=== PATIENT | female | born 1965 | race Caucasian/White ===

== ENCOUNTER → 2018-08-17 | Outpatient (CLI) | payer BC | LOC: M WHC 14:37 | DX: Z12.31 Encounter for screening mammogram for malignant neoplasm of breast (principal) | CPT/HCPCS: 77067 ==

== ENCOUNTER → 2019-11-13 | Outpatient (CLI) | payer BC ==
[~2019-11-13] MED LIST: BUPR100T6 PO; LASI80TA PO; PHEN37.5 PO; PRIS100T PO
== END ==
LOC: M PLALAB 15:37
PROVIDERS: ATTEND Nurse Practitioner Women's Health
DX: Z13.79 Encounter for other screening for genetic and chromosomal anomalies (principal)

== ENCOUNTER → 2019-11-13 | Outpatient (CLI) | payer BC ==
--- NOTE | 2019-11-13 16:49 | REPMRS ---
Patient History The patient states she had a clinical breast exam in 2019. Family history of pancreatic cancer at age 75 in mother. Digital Woman Screen Mammo: November 13, 2019 - Exam #: [id number] Bilateral CC and MLO view(s) were taken. Technologist: Ayla Marte, Technologist Prior study comparison: August 17, 2018, bilateral digital woman screen mammo performed at [facility]. August 31, 2016, digital woman screen mammo performed at [facility]. December 10, 2014, digital woman screen mammo performed at [facility]. FINDINGS: The breast tissue is almost entirely fat. There has been no change in the appearance of the mammogram from the prior studies. There is no interval development of dominant mass, architectural distortion, or grouped microcalcification typical of malignancy. 3-D tomosynthesis shows no additional findings. Assessment: BI-RADS/ACR category 1 mammogram. Negative Mammogram. Recommendation Routine screening mammogram of both breasts in 1 year (for women over age 40). This patient's Lifetime Breast Cancer Risk is estimated at 9.0 %. This mammogram was interpreted with the aid of an FDA-approved computer-aided dectection system. Electronically Signed By: Shelton Lee MD 11/13/19 [id number]
== END ==
LOC: M WHC 14:38
PROVIDERS: ATTEND Nurse Practitioner Women's Health
DX: Z12.31 Encounter for screening mammogram for malignant neoplasm of breast (principal); Z80.0 Family history of malignant neoplasm of digestive organs

== ENCOUNTER → 2022-12-09 | Outpatient (REF) | payer OTHER, BC ==
[2022-12-09 18:15] LABS: PERCENT SATURATION 4.5 % (13.2-45.0)
== END ==
LOC: M LAB REF 16:57
PROVIDERS: ATTEND Nurse Practitioner Family
DX: D50.9 Iron deficiency anemia, unspecified (principal)

== ENCOUNTER 2022-12-21 10:48 | Outpatient (CLI) | payer BC, OTHER ==
[~2022-12-21] VITALS: Ht 160 cm; Wt 144.0 kg
[~2022-12-21 10:48] MED LIST changes: +ALBUTEROL SULFATE 2.5MG/0.5ML INH NEB SOLN INH PRN; +EPINEPHrine INJ 1 MG/ML 1ML AMP IM PRN; +diphenhydrAMINE 50MG/ML VIAL IV PRN; +methylPREDNISolone 125MG 2ML VIAL IV PRN
[2022-12-21 11:00] VITALS: BP 147/65
[2022-12-21] MEDS ORDERED: NS 1,000 ML IV SCH (11:00)
[2022-12-21] MEDS ORDERED: FERRIC CARBOXYMALTOSE INJ 750 MG in NS 250 ML (>50kg) IV ONE ×3 (11:00)
[2022-12-21] MEDS ORDERED: POTA-141 PO (11:24)
[2022-12-21] MEDS ORDERED: AMLO2.5C6 PO (11:24)
[2022-12-21] MEDS ORDERED: PARO5TAB PO (11:24)
[2022-12-21] MEDS ORDERED: LEVOTAB10 PO (11:24)
[2022-12-21 12:15] VITALS: BP 139/65
[2022-12-21 12:35] VITALS: BP 137/65
== END 2022-12-21 12:40 | disposition home or self-care (01) ==
LOC: M INFU 10:48
PROVIDERS: ATTEND Internal Medicine Nephrology
DX: D50.9 Iron deficiency anemia, unspecified (principal)
CPT/HCPCS: 96365; J1439

== ENCOUNTER 2022-12-28 10:45 | Outpatient (CLI) | payer OTHER ==
[~2022-12-28] VITALS: Ht 160 cm; Wt 113.0 kg
[2022-12-28 10:45] VITALS: BP 143/65
[~2022-12-28 10:45] MED LIST changes: +AMLO2.5C6 PO; +LEVOTAB10 PO; +PARO5TAB PO; +POTA-141 PO
[2022-12-28] MEDS ORDERED: FERRIC CARBOXYMALTOSE INJ 750 MG in NS 250 ML (>50kg) IV ONE ×3 (11:00)
[2022-12-28] MEDS ORDERED: NS 1,000 ML IV SCH (11:00)
[2022-12-28 12:05] VITALS: BP 148/67
== END 2022-12-28 12:10 | disposition home or self-care (01) ==
LOC: M INFU 10:45
PROVIDERS: ATTEND Internal Medicine Nephrology
DX: D50.9 Iron deficiency anemia, unspecified (principal)
CPT/HCPCS: 96365; J1439